=== PATIENT | male | born 1955 | race Two or more races ===

== ENCOUNTER 2019-01-19 19:32 | Inpatient (IN) | payer OTHER ==
[2019-01-19 20:40] LABS: ADD MAN DIFF? NO
[2019-01-19 20:42] LABS: WHITE BLOOD COUNT 8.8 10^3/ul (4.8-10.8)
[2019-01-19 20:42] LABS: BASOPHILS % 0.3 % (0.0-2.0); EOSINOPHILS % 0.5 % (0.0-7.0); HEMATOCRIT 37.3 % (42.0-52.0); HEMOGLOBIN 12.8 g/dl (14.0-18.0); LYMPHOCYTES # 0.9 10^3/ul (0.8-2.9); LYMPHOCYTES % 9.7 % (15.0-51.0); MEAN CORPUSCULAR HEMOGLOBIN 29.6 pg (29.0-33.0); MEAN CORPUSCULAR HGB CONC 34.3 g/dl (32.0-37.0); MEAN CORPUSCULAR VOLUME 86.3 fl (82.0-101.0); MEAN PLATELET VOLUME 9.2 fl (7.4-10.4); MONOCYTE # 0.8 10^3/ul (0.3-0.9); MONOCYTES % 9.5 % (0.0-11.0); NEUTROPHILS % 79.4 % (39.0-77.0); PLATELET COUNT 371 10^3/UL (140-415); RED BLOOD COUNT 4.32 10^6/ul (4.70-6.10)
[2019-01-19] MEDS: ALBUTEROL 0.5% (NEB) 2.5 MG/0.5 ML AMP INH (20:51)
[2019-01-19 20:57] LABS: INR 1.02; PROTIME 13.5 Sec (11.9-14.9); PT RATIO 1.1
[2019-01-19] MEDS: CEFTRIAXONE 1 GM/50 ML (PMX) 50 ML IVPB (20:57)
[2019-01-19] MEDS: IBUPROFEN 600 MG TAB PO (20:57)
[2019-01-19] MEDS: SODIUM CHLORIDE 0.9% 1L BAG IV* (20:58)
[2019-01-19 21:00] LABS: ALANINE AMINOTRANSFERASE 11 IU/L (13-69); ALBUMIN/GLOBULIN RATIO 0.97; ALKALINE PHOSPHATASE 84 IU/L (42-121); ANION GAP 14 (5-13); ASPARTATE AMINO TRANSFERASE 28 IU/L (15-46); BILIRUBIN,INDIRECT 0.5 mg/dl (0-1.1); BILIRUBIN,TOTAL 0.5 mg/dl (0.2-1.3); BLOOD UREA NITROGEN 20 mg/dl (7-20); CALCIUM 9.4 mg/dl (8.4-10.2); CARBON DIOXIDE 23 mmol/L (21-31); CHLORIDE 100 mmol/L (97-110); CREATININE 1.41 mg/dl (0.61-1.24); Estimated GFR 51 mL/min (>60); GLUCOSE 139 mg/dl (70-220); LIPASE 95 U/L (23-300); POTASSIUM 4.1 mmol/L (3.5-5.1); SODIUM 137 mmol/L (135-144); TOTAL PROTEIN 8.1 g/dl (6.1-8.1)
[2019-01-19 21:11] LABS: TROPONIN-I 0.014 ng/ml (0.000-0.120)
[2019-01-19 21:26] LABS: ADD UMIC YES; UR ASCORBIC ACID NEGATIVE (NEGATIVE); UR BILIRUBIN (Dip) NEGATIVE (NEGATIVE); UR BLOOD (Dip) 2+ mg/dL (NEGATIVE); UR CLARITY SLIGHTLY CLOUDY (CLEAR); UR COLOR YELLOW (YELLOW); UR GLUCOSE (Dip) NEGATIVE (NEGATIVE); UR KETONES (Dip) NEGATIVE (NEGATIVE); UR LEUKOCYTE ESTERASE (Dip) NEGATIVE Leu/ul (NEGATIVE); UR MUCUS MANY /HPF (NONE SEEN); UR NITRITE (Dip) NEGATIVE (NEGATIVE); UR RBC 5 /HPF (0-5); UR SPECIFIC GRAVITY (Dip) 1.026 (1.003-1.030); UR TOTAL PROTEIN (Dip) NEGATIVE (NEGATIVE); UR UROBILINOGEN (Dip) 1+ mg/dL (NEGATIVE); UR WBC 3 /HPF (0-5)
[2019-01-19] MEDS: AZITHROMYCIN 500MG/NS (PMX) 250 ML IVPB (21:37)
[2019-01-19] MEDS: SOD CHLORIDE 0.9% 1,000 ML IV (23:26)
[2019-01-19] MEDS ORDERED: ALBUTEROL/IPRATROPIUM (NEB) 3 ML AMP HHN (23:30)
[2019-01-19] MEDS ORDERED: HYDROCODONE/APAP (5/325) TAB PO (23:30)
[2019-01-19] MEDS ORDERED: ACETAMINOPHEN 325 MG TAB PO (23:30)
[2019-01-19] MEDS ORDERED: NACL 0.9% 3 ML SYG IV (23:30)
[2019-01-19] MEDS ORDERED: ONDANSETRON 4 MG INJ IV (23:30)
[2019-01-20 00:42] LABS: LACTIC ACID 1.3 mmol/L (0.5-2.0)
[2019-01-20 05:21] LABS: ADD MAN DIFF? NO
[2019-01-20 05:28] LABS: WHITE BLOOD COUNT 8.2 10^3/ul (4.8-10.8)
[2019-01-20 05:28] LABS: BASOPHILS % 0.5 % (0.0-2.0); EOSINOPHILS # 0.1 10^3/ul (0.0-0.5); EOSINOPHILS % 0.7 % (0.0-7.0); HEMATOCRIT 31.2 % (42.0-52.0); HEMOGLOBIN 10.5 g/dl (14.0-18.0); LYMPHOCYTES # 1.5 10^3/ul (0.8-2.9); LYMPHOCYTES % 18.1 % (15.0-51.0); MEAN CORPUSCULAR HEMOGLOBIN 29.7 pg (29.0-33.0); MEAN CORPUSCULAR HGB CONC 33.7 g/dl (32.0-37.0); MEAN CORPUSCULAR VOLUME 88.4 fl (82.0-101.0); MEAN PLATELET VOLUME 9.6 fl (7.4-10.4); MONOCYTE # 0.9 10^3/ul (0.3-0.9); MONOCYTES % 11.4 % (0.0-11.0); NEUTROPHIL # 5.6 10^3/ul (1.6-7.5); NEUTROPHILS % 68.8 % (39.0-77.0); PLATELET COUNT 305 10^3/UL (140-415); RED BLOOD COUNT 3.53 10^6/ul (4.70-6.10); RED CELL DISTRIBUTION WIDTH 13.4 % (11.5-14.5)
[2019-01-20 05:51] LABS: ALANINE AMINOTRANSFERASE 12 IU/L (13-69); ALBUMIN/GLOBULIN RATIO 0.93; ALKALINE PHOSPHATASE 67 IU/L (42-121); ANION GAP 6 (5-13); ASPARTATE AMINO TRANSFERASE 22 IU/L (15-46); BILIRUBIN,INDIRECT 0.3 mg/dl (0-1.1); BILIRUBIN,TOTAL 0.3 mg/dl (0.2-1.3); BLOOD UREA NITROGEN 17 mg/dl (7-20); CALCIUM 8.6 mg/dl (8.4-10.2); CARBON DIOXIDE 24 mmol/L (21-31); CHLORIDE 110 mmol/L (97-110); CHOL/HDL RATIO 2.9 RATIO; CHOLESTEROL 70 mg/dl (100-200); CREATININE 1.15 mg/dl (0.61-1.24); Estimated GFR > 60 mL/min (>60); GLUCOSE 103 mg/dl (70-220); HDL CHOLESTEROL 24 mg/dl (30-78); LDL CHOLESTEROL,CALCULATED 37 mg/dl; MAGNESIUM 2.2 mg/dl (1.7-2.5); POTASSIUM 3.8 mmol/L (3.5-5.1); SODIUM 140 mmol/L (135-144); TOTAL PROTEIN 6.2 g/dl (6.1-8.1); TRIGLYCERIDES 47 mg/dl (0-149)
[2019-01-20] MEDS: SOD CHLORIDE 0.9% 1,000 ML IV ×3 (06:30→18:10)
[2019-01-20] MEDS: LEVOFLOXACIN 500MG/D5W (PMX) 100 ML IVPB (08:38)
[2019-01-20] MEDS: CLOPIDOGREL 75 MG TAB PO (10:43)
[2019-01-20] MEDS ORDERED: CEFTRIAXONE 2 GM INJ IM (13:30)
[2019-01-20] MEDS ORDERED: GUAIFENESIN/DM 5ML CUP PO (13:30)
[2019-01-20] MEDS: CEFTRIAXONE 2 GM/50 ML (PMX) 50 ML IVPB (15:18)
[2019-01-20] MEDS: ATORVASTATIN 80 MG TAB PO (21:04)
[2019-01-21 06:15] LABS: ADD MAN DIFF? NO
[2019-01-21 06:30] LABS: BASOPHIL # 0.1 10^3/ul (0.0-0.1); BASOPHILS % 0.6 % (0.0-2.0); EOSINOPHILS # 0.1 10^3/ul (0.0-0.5); EOSINOPHILS % 0.6 % (0.0-7.0); HEMATOCRIT 34.4 % (42.0-52.0); HEMOGLOBIN 11.5 g/dl (14.0-18.0); LYMPHOCYTES # 1.1 10^3/ul (0.8-2.9); LYMPHOCYTES % 12.8 % (15.0-51.0); MEAN CORPUSCULAR HEMOGLOBIN 29.6 pg (29.0-33.0); MEAN CORPUSCULAR HGB CONC 33.4 g/dl (32.0-37.0); MEAN CORPUSCULAR VOLUME 88.7 fl (82.0-101.0); MEAN PLATELET VOLUME 9.4 fl (7.4-10.4); MONOCYTE # 0.7 10^3/ul (0.3-0.9); NEUTROPHIL # 6.6 10^3/ul (1.6-7.5); NEUTROPHILS % 77.4 % (39.0-77.0); PLATELET COUNT 346 10^3/UL (140-415); RED BLOOD COUNT 3.88 10^6/ul (4.70-6.10); RED CELL DISTRIBUTION WIDTH 13.2 % (11.5-14.5)
[2019-01-21 06:30] LABS: WHITE BLOOD COUNT 8.6 10^3/ul (4.8-10.8)
[2019-01-21 06:35] LABS: HEMOGLOBIN A1C 5.3 % (0-5.9)
[2019-01-21 06:51] LABS: ALANINE AMINOTRANSFERASE 21 IU/L (13-69); ALBUMIN 3.2 g/dl (3.3-4.9); ALBUMIN/GLOBULIN RATIO 0.94; ALKALINE PHOSPHATASE 76 IU/L (42-121); ANION GAP 10 (5-13); ASPARTATE AMINO TRANSFERASE 22 IU/L (15-46); BILIRUBIN,INDIRECT 0.4 mg/dl (0-1.1); BILIRUBIN,TOTAL 0.4 mg/dl (0.2-1.3); BLOOD UREA NITROGEN 9 mg/dl (7-20); CALCIUM 8.5 mg/dl (8.4-10.2); CARBON DIOXIDE 24 mmol/L (21-31); CHLORIDE 106 mmol/L (97-110); CREATININE 1.08 mg/dl (0.61-1.24); Estimated GFR > 60 mL/min (>60); GLUCOSE 83 mg/dl (70-220); SODIUM 140 mmol/L (135-144); TOTAL PROTEIN 6.6 g/dl (6.1-8.1)
[2019-01-21] MEDS: CLOPIDOGREL 75 MG TAB PO (08:13)
[2019-01-21] MEDS: FAMOTIDINE 20 MG TAB PO (08:13)
[2019-01-21] MEDS: LEVOFLOXACIN 500MG/D5W (PMX) 100 ML IVPB (08:13)
[2019-01-21] MEDS: ENOXAPARIN 40 MG/0.4 ML SYG SC (08:15)
[2019-01-21] MEDS: CEFTRIAXONE 2 GM/50 ML (PMX) 50 ML IVPB (15:23)
== END 2019-01-21 16:20 | disposition home or self-care (01) | DRG 871 ==
LOC: E/R 19:32 → 2NE 21:16
PROVIDERS: Internal Medicine
DX: A41.9 Sepsis, unspecified organism (principal); J69.0 Pneumonitis due to inhalation of food and vomit; N17.9 Acute kidney failure, unspecified; I69.354 Hemiplegia and hemiparesis following cerebral infarction affecting left non-dominant side; I10 Essential (primary) hypertension; I12.9 Hypertensive chronic kidney disease with stage 1 through stage 4 chronic kidney disease, or unspecified chronic kidney disease; N18.9 Chronic kidney disease, unspecified; E78.5 Hyperlipidemia, unspecified; D64.9 Anemia, unspecified
CPT/HCPCS: 36415; 71045; 80053; 80061; 81001; 83036; 83605; 83690; 83735; 84100; 84443; 84484; 85025; 85610; 85730; 87040; 87086; 87400; 93005; 94644; 96374; 99285-25

== ENCOUNTER 2019-02-17 11:06 | Emergency (ER) | payer OTHER | END 2019-02-17 17:15 | disposition home or self-care (01) | LOC: FTE 11:06 | DX: M79.604 Pain in right leg (principal); I10 Essential (primary) hypertension; Z79.01 Long term (current) use of anticoagulants; Z86.73 Personal history of transient ischemic attack (TIA), and cerebral infarction without residual deficits; Z96.651 Presence of right artificial knee joint; Z98.61 Coronary angioplasty status | CPT/HCPCS: 93971; 99284-25 ==

== ENCOUNTER 2019-02-25 12:58 | Emergency (ER) | payer OTHER ==
[2019-02-25] MEDS: METHYLPREDNISOLONE 125 MG INJ IM (15:07)
== END 2019-02-25 15:12 | disposition home or self-care (01) ==
LOC: FTE 12:58
DX: M17.9 Osteoarthritis of knee, unspecified (principal); I10 Essential (primary) hypertension; M25.461 Effusion, right knee; Z79.01 Long term (current) use of anticoagulants; Z98.61 Coronary angioplasty status
CPT/HCPCS: 96372; 99284-25

== ENCOUNTER 2019-03-04 16:33 | Emergency (ER) | payer OTHER ==
[2019-03-04] MEDS: DEXAMETHASONE 10 MG/ML 1 ML INJ IM (19:10)
== END 2019-03-04 20:26 | disposition home or self-care (01) ==
LOC: FTE 16:33
DX: M17.9 Osteoarthritis of knee, unspecified (principal); I10 Essential (primary) hypertension; I25.10 Atherosclerotic heart disease of native coronary artery without angina pectoris; Z86.73 Personal history of transient ischemic attack (TIA), and cerebral infarction without residual deficits; Z98.61 Coronary angioplasty status
CPT/HCPCS: 73562; 96372; 99284-25